=== PATIENT | male | born 2005 | race Caucasian/White ===

== ENCOUNTER 2023-08-10 08:01 | Emergency (ER) | payer MEDICAID ==
[2023-08-10 08:17] VITALS: TEMP 98
--- NOTE | 2023-08-10 08:26 | ERPHSYRPT ---
- History of Present Illness Time Seen by Provider: 08/10/23 08:15 Source: patient Exam Limitations: no limitations Patient Subjective Stated Complaint: Left shoulder pain Triage Nursing Assessment: Patient ambulated back to ED and transferred self to bed. Patient A+O X3. Patient's skin pink, warm and dry. Patient complains of left shoulder pain that started yesterday and when he woke up this am the pain was bad. Patient states the pain to left shoulder is constant dull with intermittent burning 05/29. Patient denies recent pain or trauma. Physician History: The patient presents with a sudden onset of burning pain in their left shoulder, neck, and back, which started yesterday. The pain was initially dull but has since become more intense and radiating. The patient is unsure of the cause and has not experienced any recent injuries or changes in physical activity. He reports no numbness or tingling in the arm but describe the sensation as feeling like it is on fire. The patient has not had any issues with the affected area in the past. The pain is not exacerbated by touch and comes in waves, with periods of increased intensity. The patient has not noticed any rashes, except for a mild rash where they applied a Biofreeze patch. The burning worsened just after application of Biofreeze patch around 0600 this AM. He has not experienced any difficulty breathing, although taking deep breaths causes pain. The patient reports some chest pain, but it is believed to be related to the same issue causing the shoulder and neck pain. The patient has been feeling unwell for the past couple of days, but the sym ptoms have not been lingering for an extended period. He has not experienced anything similar in the past and have no pain or issues in their legs. The patient denies any ear pain, but has noticed swelling in his lymph nodes. Timing/Duration: yesterday Quality: burning Severity: severe Location: extremities (left shoulder), neck Possible Causes: no cause identified Modifying Factors: Improves With: other (biofreeze patch worsens) Associated Symptoms: swelling/mass/lumps, No blisters, No change in skin texture, No difficulty breathing, No flushing, No rash, No tingling Allergies/Adverse Reactions: banana Allergy (Verified 08/10/23 08:08) peach Allergy (Verified 08/10/23 08:08) watermelon Allergy (Verified 08/10/23 08:08) Hx Tetanus, Diphtheria Vaccination/Date Given: No Hx Influenza Vaccination/Date Given: No Hx Pneumococcal Vaccination/Date Given: No Immunizations Up to Date: Yes Travel Risk - International Travel Have you traveled outside of the country in past 3 weeks: No - Coronavirus Screening Are you exhibiting any of the following symptoms?: No Close contact with a COVID-19 positive Pt in past 14-21 Days: No - Vaccine Status Have you recieved a Covid-19 vaccination: No - Review of Systems All Other Systems: Reviewed and Negative (Negative as per HPI) - Past Medical History Pertinent Past Medical History: Yes Neurological History: No Pertinent History Cardiac History: No Pertinent History Respiratory History: No Pertinent History Endocrine Medical History: No Pertinent History Musculoskeletal History: No Pertinent History Other Medical History: 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 - Past Surgical History Past Surgical History: No Neuro Surgical History: No Pertinent History Cardiac: No Pertinent History Respiratory: No Pertinent History Gastrointestinal: No Pertinent History Genitourinary: No Pertinent History Musculoskeletal: No Pertinent History Male Surgical History: No Pertinent History - Social History Smoking Status: Never smoker Exposure to second hand smoke: No Drug Use: none Patient Lives Alone: No - Nursing Vital Signs Nursing Vital Signs: Initial Vital Signs Temperature 98.0 F 08/10/23 08:09 Pulse Rate 76 08/10/23 08:09 Respiratory Rate 18 08/10/23 08:09 Blood Pressure 148/106 08/10/23 08:09 O2 Sat by Pulse Oximetry 96 08/10/23 08:09 Pain Scale Pain Intensity 8 - Physical Exam General Appearance: moderate distress Eye Exam: PERRL/EOMI, eyes nml inspection Ears, Nose, Throat Exam: normal ENT inspection, pharyngeal erythema, other (No lesions), No tonsillar exudate Neck Exam: normal inspection, non-tender, supple, full range of motion, No lymphadenopathy Back Exam: normal inspection, normal range of motion, rash (left posterior shoulder erythema, no lesions), No vertebral tenderness, No point tenderness SpO2: 96 Comments: Bilateral shoulder No obvious deformities. No pain with abduction past 90 degrees. Neg Peña. Neg Neers. No pain w/ resisted external rotation. No pain w/ empty-can test. Neg scarf test. 5/5 strength in all rotator cuff muscles - Course Nursing assessment & vital signs reviewed: Yes EKG Interpreted by Me: RATE (93), Sinus Rhythm, NORMAL AXIS, NORMAL INTERVALS, NORMAL ST-T Ordered Tests: Active Orders 24 hr Category Date Time Status EKG-ER Only STAT Care 08/10/23 08:27 Active CBC Stat Lab 08/10/23 08:47 Completed CMP Stat Lab 08/10/23 08:47 Completed Erythrocyte Sedimentation Rate Stat Lab 08/10/23 08:47 Completed Urine Triage Profile Stat Lab 08/10/23 08:32 Received Medication Summary Discontinued Medications Generic Name Dose Route Start Last Admin Trade Name Frank PRN Reason Stop Dose Admin Acyclovir 1,000 mg 08/10/23 08:31 08/10/23 08:54 Acyclovir 200 Mg Capsule PO 08/10/23 08:32 1,000 mg STAT ONE Administration Ketorolac Tromethamine 30 mg 08/10/23 08:32 08/10/23 08:39 Ketorolac Tromethamine 30 Mg/Ml Inj IM 08/10/23 08:33 30 mg STAT ONE Administration Ketorolac Tromethamine Confirm 08/10/23 08:36 Ketorolac Tromethamine 30 Mg/Ml Inj Administered 08/10/23 08:37 Dose 30 mg .ROUTE .STK-MED ONE Lidocaine/Prilocaine 2.5 gm 08/10/23 08:32 08/10/23 08:38 Lidocaine/Prilocaine 5 Gm 5 Gm Tube TP 08/10/23 08:33 2.5 gm STAT ONE Administration Lidocaine/Prilocaine Confirm 08/10/23 08:36 Lidocaine/Prilocaine 5 Gm 5 Gm Tube Administered 08/10/23 08:37 Dose 5 gm TP .STK-MED ONE Lab/Rad Data: Laboratory Result Diagrams 08/10/23 08:47 08/10/23 08:47 Laboratory Results 08/10/23 08/10/23 Range/Units 08:47 08:47 WBC 8.3 (4.0-10.5) x10^3/uL RBC 5.59 (4.1-5.6) x10^6/uL Hgb 17.9 (12.5-18.0) g/dL Hct 51.5 H (42-50) % MCV 92.1 (78-100) fL MCH 32.0 (26-32) pg MCHC 34.8 (32-36) g/dL RDW 11.2 L (11.5-14.0) % Plt Count 263 (150-450) x10^3/uL MPV 8.8 (7.5-11.0) fL ESR 2 (0-15) mm/hr Sodium 140 (137-145) mmol/L Potassium 3.9 (3.5-5.1) mmol/L Chloride 103 (98-107) mmol/L Carbon Dioxide 22 (22-30) mmol/L Anion Gap 18.4 H (5-15) MEQ/L BUN 12 (9-20) mg/dL Creatinine 0.75 (0.66-1.25) mg/dL Estimated GFR > 60.0 ML/MIN Glucose 96 (74-106) mg/dL Calcium 9.3 (8.4-10.2) mg/dL Total Bilirubin 0.30 (0.2-1.3) mg/dL AST 40 (17-59) U/L ALT 31 (0-50) U/L Alkaline Phosphatase 105 (38-126) U/L Serum Total Protein 8.3 H (6.3-8.2) g/dL Albumin 5.0 (3.5-5.0) g/dL - Progress Progress Note: 17yo M patient with a burning pain and erythematous rash in a dermatomal pattern suggestive of early shingles. Not immunocompromised and without signs of systemic or disseminated infection. Burning made worse by BioFreeze patch would could have damaged the skin on his posterior left shoulder. Evaluation included EKG, CBC, CMP, UDS and rapid strep test to r/o other potential causes of the pain were all negative. PE not consistent with neck or shoulder injury. Plan: Valacyclovir 1g given. Toradol and lidocaine cream given for pain control, reassessment, likely discharge Pain resolved at this time after ED treatments. Will continue Valtrex, Toradol tablets and Lidocaine cream at discharge. Please return if sxs worsen. Counseled pt/family regarding: lab results, diagnosis Medical Desision Making - Diagnostic Testing Diagnostic test were ordered, analyzed, and reviewed by me: Yes Radiological Interpretation: Interpreted by me - Risk of complications The pt has a mod risk of morbidity or mortality based on: Need for prescription drug management - Departure Departure Disposition: Home Clinical Impression: Shingles Condition: Good Critical Care Time: No Referrals: Provider,Unknown [Primary Care Provider] - Follow up/PCP as directed Instructions: Shingles (DC) Prescriptions: lidocaine HCL [Dermacinrx Lidogel] 100 gm TP Q6H PRN 14 Days PRN Reason: Pain Ketorolac Trometh 10 mg Tab [TORAdol 10 MG TABLET] 10 mg PO BID #14 tablet Valacyclovir HCl [Valacyclovir] 1,000 mg PO TID 7 Days #21 tablet
[2023-08-10] MEDS ORDERED: ACYCLOVIR PO ONE (08:31)
[2023-08-10] MEDS ORDERED: TORAdol 30 mg Injection IM ONE (08:32)
[2023-08-10] MEDS ORDERED: EMLA Cream 5 GM TP ONE ×2 (08:32→08:36)
[2023-08-10] MEDS ORDERED: TORAdol 30 mg Injection ONE (08:36)
[2023-08-10 08:51] LABS: Hematocrit 51.5 % (42-50); Hemoglobin 17.9 g/dL (12.5-18.0); Mean Cell Volume 92.1 fL (78-100); Mean Corpuscular Hgb Concent. 34.8 g/dL (32-36); Mean Platelet Volume 8.8 fL (7.5-11.0); Platelet Count 263 x10^3/uL (150-450); Red Blood Count 5.59 x10^6/uL (4.1-5.6); Red Cell Distribution Width 11.2 % (11.5-14.0); White Blood Count 8.3 x10^3/uL (4.0-10.5)
[2023-08-10 08:56] LABS: Erythrocyte Sedimentation Rate 2 mm/hr (0-15)
[2023-08-10 09:04] LABS: ALKALINE PHOSPHATASE 105 U/L (38-126); ANION GAP 18.4 MEQ/L (5-15); BLOOD UREA NITROGEN 12 mg/dL (9-20); CHLORIDE 103 mmol/L (98-107); Calcium 9.3 mg/dL (8.4-10.2); Carbon Dioxide 22 mmol/L (22-30); Creatinine 1 0.75 mg/dL (0.66-1.25); EST GLOMERULAR FILTRATION RATE > 60.0 ML/MIN; Glucose 96 mg/dL (74-106); Potassium 3.9 mmol/L (3.5-5.1); SGOT/AST 40 U/L (17-59); SGPT/ALT 31 U/L (0-50); SODIUM 140 mmol/L (137-145); Total Protein 8.3 g/dL (6.3-8.2)
[2023-08-10 09:39] LABS: Amphetamine,Urine NEGATIVE (NEGATIVE); Barbiturate,Urine NEGATIVE (NEGATIVE); Benzodiazepine,Urine NEGATIVE (NEGATIVE); Cocaine,Urine NEGATIVE (NEGATIVE); Methadone,Urine NEGATIVE (NEGATIVE); Opiate,Urine NEGATIVE (NEGATIVE); PCP,Urine NEGATIVE (NEGATIVE); THC,Urine POSITIVE (NEGATIVE)
[2023-08-10 10:11] VITALS: BP 116/76; PULSE 72; RESP 19; O2SAT 98
== END 2023-08-10 09:50 | disposition home or self-care (01) ==
LOC: ED 08:01
DX: B02.9 Zoster without complications (principal); M25.512 Pain in left shoulder; M54.2 Cervicalgia; M54.9 Dorsalgia, unspecified; R07.9 Chest pain, unspecified; Z28.310 Unvaccinated for COVID-19
CPT/HCPCS: 36415; 80053; 80307; 85027; 85652; 87651; 93005; 96372; 99283; J1885; A9270-GY